=== PATIENT | female | born 1960 | race Asian ===

== ENCOUNTER 2019-05-22 07:33 | Day surgery (SDC) | payer OTHER ==
[~2019-05-22] VITALS: Ht 160 cm; Wt 109.3 kg
== END 2019-05-22 10:10 | disposition home or self-care (01) ==
LOC: OR 07:33
PROC: 3E0T3TZ Introduction of Destructive Agent into Peripheral Nerves and Plexi, Percutaneous Approach (ICD-10-PCS; principal; 2019-05-22)
DX: M17.12 Unilateral primary osteoarthritis, left knee (principal); M25.562 Pain in left knee
CPT/HCPCS: J2001

== ENCOUNTER 2020-12-21 14:11 | Outpatient (CLI) | payer OTHER | END 2020-12-21 20:55 | disposition home or self-care (01) | LOC: EMG 14:11 | PROVIDERS: ATTEND Pain Medicine Interventional Pain Medicine | DX: M51.16 Intervertebral disc disorders with radiculopathy, lumbar region (principal) | CPT/HCPCS: 95861; 95912 ==